=== PATIENT | male | born 1975 ===

== ENCOUNTER 2018-04-24 10:50 | Emergency (ER) | payer OTHER ==
[2018-04-24 10:57] VITALS: BMI 32.5
[2018-04-24 10:58] VITALS: O2SAT 99
[2018-04-24 12:31] LABS: BASO % 0.6 % (0.0-2.0); EOS % 0.9 % (0.0-4.0); HEMOGLOBIN 14.4 g/dL (12.0-18.0); LYMPH # 1.6 K/uL (1.0-4.3); LYMPH % 37.8 % (20.0-40.0); MEAN CELL VOLUME 87.2 fl (80.0-94.0); MEAN CORPUSCULAR HEMOGLOBIN 28.9 pg (27.0-31.0); MEAN CORPUSCULAR HGB CONC 33.1 g/dL (33.0-37.0); MEAN PLATELET VOLUME 9.8 fl (7.2-11.7); MONO # 0.5 K/uL (0.0-0.8); MONO % 11.6 % (0.0-10.0); NEUT # 2.1 K/uL (1.8-7.0); NEUT % 49.1 % (50.0-75.0); NRBC % 0.2 % (0.0-0.0); RBC 4.99 Mil/uL (4.40-5.90); RED CELL DISTRIBUTION WIDTH 13.7 % (11.5-14.5); WHITE BLOOD COUNT 4.2 K/uL (4.8-10.8)
[2018-04-24 12:52] LABS: BLOOD UREA NITROGEN 14 mg/dl (9-20); CALCIUM 9.8 mg/dL (8.4-10.2); GFR NON-AFRICAN AMERICAN > 60
--- NOTE | 2018-04-24 13:23 | ED PDOC ---
HPI: Chest Pain Time Seen by Provider: 04/24/18 11:40 Chief Complaint (Nursing): Chest Pain Chief Complaint (Provider): Chest pain History Per: Patient History/Exam Limitations: no limitations Onset/Duration Of Symptoms: Intermittent Episodes, Persistent Current Symptoms Are (Timing): Still Present Quality: "Pain" Associated Symptoms: denies: Nausea, Dyspnea, Diaphoresis, Syncope Additional Complaint(s): 43yo male, otherwise well, comes to ER reporting persistent chest pain, present for the past 3 months. Patient states the pain is intermittently present, but denies any associated radiation, nausea, vomiting. He also denies any abdominal pain, shortness of breath, fever, chills, nausea, vomiting or diarrhea. No medications taken for the pain. Patient has an additional complaint of swelling to his rectal area, which worsens with straining. No blood in stool, no rectal pain. PMD: Dr. Garcia Past Medical History Reviewed: Historical Data, Nursing Documentation, Vital Signs Vital Signs: Last Vital Signs Temp 98.2 F 04/24/18 10:57 Pulse 75 04/24/18 10:57 Resp 17 04/24/18 10:57 BP 128/78 04/24/18 10:57 Pulse Ox 99 04/24/18 10:57 - Medical History PMH: Asthma - Surgical History Surgical History: No Surg Hx - Family History Family History: States: No Known Family Hx - Home Medications Home Medications: Ambulatory Orders Medication Instructions Recorded Phenylephrine [Lyn-Med NF] 1 supp RC Q12 #20 sup 04/24/18 - Allergies Allergies/Adverse Reactions: Allergies Allergy/AdvReac Type Severity Reaction Status Date / Time No Known Allergies Allergy Verified 04/24/18 11:02 Review of Systems ROS Statement: Except As Marked, All Systems Reviewed And Found Negative Constitutional: Negative for: Fever, Chills Cardiovascular: Positive for: Chest Pain Respiratory: Negative for: Cough, Shortness of Breath Gastrointestinal: Negative for: Nausea, Vomiting, Abdominal Pain Physical Exam - Reviewed Nursing Documentation Reviewed: Yes Vital Signs Reviewed: Yes - Physical Exam Appears: Positive for: Well, Non-toxic, No Acute Distress Head Exam: Positive for: ATRAUMATIC, NORMAL INSPECTION, NORMOCEPHALIC Skin: Positive for: Normal Color, Warm, DRY Eye Exam: Positive for: EOMI, Normal appearance, PERRL ENT: Positive for: Normal ENT Inspection Neck: Positive for: Normal, Painless ROM Cardiovascular/Chest: Positive for: Regular Rate, Rhythm, Chest Non Tender. Negative for: Tachycardia Respiratory: Positive for: CNT, Normal Breath Sounds Pulses-Radial (L): 2+ Pulses-Radial (R): 2+ Gastrointestinal/Abdominal: Positive for: Normal Exam, Soft Back: Positive for: Normal Inspection Rectal: Positive for: Hemorrhoids (0.5cm external hemorrhoid noted, non- thrombosed, nontender, no discharge noted, nonerythematous, no signs of infecton) Extremity: Positive for: Normal ROM. Negative for: Pedal Edema, Deformity Neurologic/Psych: Positive for: Alert, Oriented. Negative for: Motor/Sensory Deficits - Laboratory Results Result Diagrams: 04/24/18 12:24 04/24/18 12:24 Lab Results: Troponin I < 0.0120 ng/mL (0.00-0.120) 04/24/18 12:24 - ECG O2 Sat by Pulse Oximetry: 99 (RA) Pulse Ox Interpretation: Normal Medical Decision Making Medical Decision Makinyo male with chest pain x 3 months Secondary complaints of hemorrhoid - no intervention needed at this time Plan: -- EKG -- CXR -- Labs 1340 Labs reviewed, CXR reviewed, no clinically significant abnormalities. Patient to be discharged home with prescription for hemorrhoid cream; patient informed to follow up with PMD in 2-3 days. Scribe Attestation: Documented by Yoli Beckford acting as a scribe for Viviana Marie MD Provider Attestation: All medical record entries made by the Scribe were at my direction and personally dictated by me. I have reviewed the chart and agree that the record accurately reflects my personal performance of the history, physical exam, medical decision making, and the department course for this patient. I have also personally directed, reviewed, and agree with the discharge instructions and disposition. Disposition - Clinical Impression Clinical Impression: Hemorrhoid - Disposition Referrals: [facility] [Outside] Disposition: Routine/Home Disposition Time: 13:40 Condition: IMPROVED Additional Instructions: Take medication as prescribed for regular bowel movements. Use hemorrhoid cream as needed and use sitz bath as needed for pain. Follow up with the primary clinic. Prescriptions: Phenylephrine [Lyn-Med NF] 1 supp RC Q12 #20 sup Instructions: Hemorrhoids (DC), How to Do a Sitz Bath Forms: [facility] ([place]i) Print Language: CROATIAN
[2018-04-24 14:21] VITALS: BP 122/78; PULSE 72; RESP 18; TEMP 97.7
--- NOTE | 2018-04-24 14:33 | RAD ---
Date of service: 04/24/2018 HISTORY: cough COMPARISON: No prior. TECHNIQUE: Chest PA and lateral FINDINGS: LUNGS: No active pulmonary disease. PLEURA: No significant pleural effusion identified. No pneumothorax apparent. CARDIOVASCULAR: No aortic atherosclerotic calcification present. Normal cardiac size. No pulmonary vascular congestion. OSSEOUS STRUCTURES: No significant abnormalities. VISUALIZED UPPER ABDOMEN: Normal. OTHER FINDINGS: None. IMPRESSION: No active disease.
--- NOTE | 2018-04-25 11:31 | CARD ---
APPROVED REPORT Date of service: 04/24/2018 EKG Measurement Heart [id number] <Conclusion> Normal sinus rhythm Normal ECG
== END 2018-04-24 14:20 | disposition home or self-care (01) ==
LOC: H.ER 10:50
DX: R07.89 Other chest pain (principal); K64.9 Unspecified hemorrhoids